=== PATIENT | male | born 2000 | race Caucasian/White ===

== ENCOUNTER 2019-01-29 10:19 | Emergency (ER) | payer SELFPAY ==
[~2019-01-29] VITALS: Ht 165.1 cm; Wt 93.4 kg
[2019-01-29 10:58] VITALS: BP 136/73; PULSE 95; RESP 20; Ht 165.1 cm; Wt 93.4 kg
== END 2019-01-29 11:42 | disposition left against medical advice (07) ==
LOC: FTE 10:19
DX: Z53.21 Procedure and treatment not carried out due to patient leaving prior to being seen by health care provider (principal)

== ENCOUNTER 2019-01-29 22:11 | Emergency (ER) | payer SELFPAY | END 2019-01-29 22:53 | disposition left against medical advice (07) | LOC: E/R 22:11 | DX: Z53.21 Procedure and treatment not carried out due to patient leaving prior to being seen by health care provider (principal) ==

== ENCOUNTER 2019-02-02 08:02 | Emergency (ER) | payer OTHER ==
[~2019-02-02] VITALS: Ht 165.1 cm; Wt 90.2 kg
[2019-02-02 08:05] VITALS: BP 143/74; PULSE 84; RESP 18; Ht 165.1 cm; Wt 90.2 kg
[2019-02-02] MEDS ORDERED: ONDANSETRON (ODT) 4 MG TAB ODT STA (08:26)
[2019-02-02] MEDS ORDERED: HYDR-4011 PO (08:28)
[2019-02-02] MEDS ORDERED: CYCL10TA7 PO (08:28)
[2019-02-02] MEDS ORDERED: NAPR-985 PO (08:28)
[2019-02-02] MEDS ORDERED: HYDROCODONE/APAP (5/325) TAB PO ONE (08:30)
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
== END 2019-02-02 08:57 | disposition home or self-care (01) ==
LOC: FTE 08:02
DX: M54.9 Dorsalgia, unspecified (principal); R51 Headache
CPT/HCPCS: Z7502; Z7610; 99283

== ENCOUNTER 2019-03-22 07:31 | Emergency (ER) | payer OTHER ==
[~2019-03-22] VITALS: Ht 152.4 cm; Wt 79.0 kg
[~2019-03-22 07:31] MED LIST: CYCL10TA7 PO; HYDR-4011 PO; NAPR-985 PO
[2019-03-22 07:36] VITALS: BP 123/71; PULSE 78; RESP 18; Ht 152.4 cm; Wt 79.0 kg
[2019-03-22] MEDS ORDERED: NAPR-985 PO (07:55)
--- NOTE | 2019-03-22 08:02 | ERD ---
ER Documentation Chief Complaint Chief Complaint BACK PAIN X 3 WEEKS HPI This is a 18-year-old male patient who presents the emergency room complaint of mid to low back pain x1 week after lifting box. Denies any paresthesia, no difficulty ambulation or getting on and off gurney. Patient well-appearing, no chronic medical problems. Has not tried heat, stretching, NSAIDs. ROS All systems reviewed and are negative except as per history of present illness. Medications Home Meds Active Scripts Naproxen* (Naprosyn*) 500 Mg Tablet, 500 MG PO BID for 14 Days, #28 TAB Prov:SABINA NUNEZ NP 03/22/19 Cyclobenzaprine Hcl* (Cyclobenzaprine Hcl*) 10 Mg Tablet, 10 MG PO TID, #15 TAB Prov:JANELL CANTRELL PA-C 02/02/19 Naproxen* (Naprosyn*) 500 Mg Tablet, 500 MG PO BID PRN for PAIN AND/OR INFLAMMATION, #30 TAB Prov:JANELL CANTRELL PA-C 02/02/19 Hydrocodone/Acetaminophen ([place] 5-325 Tablet) 1 Each Tablet, 1 TAB PO Q6H PRN for PAIN, #7 TAB Prov:JANELL CANTRELL PA-C 02/02/19 Allergies Allergies: Coded Allergies: No Known Drug Allergies (Verified Allergy, Mild, 07/28/16) PMhx/Soc History of Surgery: Yes (TOF SURGERY X 2 SURGERIES ,L LUNG TRANSPLANT) Hx Neurological Disorder: No Hx Respiratory Disorders: Yes (L LUNG TRANSPLANT ) Hx Cardiac Disorders: Yes (TOF 1 SURGERY WHEN BABY AND LAST ONE 2 YRS AGO) Hx Miscellaneous Medical Probl: No Hx Alcohol Use: No Hx Substance Use: No Hx Tobacco Use: No Smoking Status: Never smoker FmHx Family History: No diabetes, No coronary disease, No other Physical Exam Vitals Vital Signs Date Temp Pulse Resp B/P (MAP) Pulse Ox O2 O2 Flow FiO2 Time Delivery Rate 03/22/19 98.1 78 18 123/71 99 07:36 (88) Physical Exam Const: No acute distress Head: Atraumatic Eyes: Normal Conjunctiva ENT: Normal External Ears, Nose and Mouth. Neck: Full range of motion. No meningismus. Resp: Clear to auscultation bilaterally Cardio: Regular rate and rhythm, no murmurs Abd: Soft, non tender, non distended. Normal bowel sounds Skin: No petechiae or rashes Back: No midline or flank tenderness, no bruising, no ltd rom Ext: No cyanosis, or edema Neur: Awake and alert, steady gait, normal toe-heel test Psych: Normal Mood and Affect Back Exam: Skin: No bruising or rash Compartments: Soft Motor: Normal flexion and extension of bilateral hip/knee/ankle/foot Sensation: Intact to light touch throughout Bones: No midline TTP Procedures/MDM This is a 18-year-old male patient presents emergency room with back pain. Patient is able to ambulate to treatment area without assistance. Patient is seated on the stretcher without obvious distress. There is no surface trauma. No muscle tenderness to palpation, no spasms, no step-off or deformity, no CVA tenderness to percussion, patient is able to stand erect. Normal flexion and extension with lateral bending and rotation without limitation. Heel and toe walk with good strength Straight leg raise negative for radiculopathy sensation to light touch is intact. Due to patient's presentation today there is low suspicion for malignancy, infection, epidural abscess, cauda equina syndrome, herniation, AAA. Patient's musculoskeletal symptoms have stabilized while they have been evaluated in the department and are appropriate for outpatient work up. Patient is being discharged home with instructions to follow-up with primary care provider. Patient is also provided prescription for NSAID with instructions for use of heat, ice, stretching. Red flags discussed, patient verbalized understanding of signs and symptoms to return to emergency room. Departure Diagnosis: Primary Impression: Back pain Condition: Stable Patient Instructions: Back Pain (Acute Or Chronic) Referrals: [facility] YOU HAVE RECEIVED A MEDICAL SCREENING EXAM AND THE RESULTS INDICATE THAT YOU DO NOT HAVE A CONDITION THAT REQUIRES URGENT TREATMENT IN THE EMERGENCY DEPARTMENT. FURTHER EVALUATION AND TREATMENT OF YOUR CONDITION CAN WAIT UNTIL YOU ARE SEEN IN YOUR DOCTORS OFFICE WITHIN THE NEXT 1-2 DAYS. IT IS YOUR RESPONSIBILITY TO MAKE AN APPOINTMENT FOR FOLOW-UP CARE. IF YOU HAVE A PRIMARY DOCTOR --you should call your primary doctor and schedule an appointment IF YOU DO NOT HAVE A PRIMARY DOCTOR YOU CAN CALL OUR PHYSICIAN REFERRAL HOTLINE AT IF YOU CAN NOT AFFORD TO SEE A PHYSICIAN YOU CAN CHOSE FROM THE FOLLOWING [facility] [address] [place] [address] [facility] [facility] [address] [facility] [address] [facility] [address] [facility]. [facility] [address] Additional Instructions: Thank you very much for allowing us to participate in your care. Your health and safety is our top priority at [facility]. Call your primary care doctor TOMORROW for an appointment during the next 2-4 days and bring all the information and medications prescribed. Have prescriptions filled and follow precisely the directions on the label. If the symptoms get worse and your provider is unavailable, return to the Emergency Department immediately. USE HEAT 20-30 MIN SEVERAL TIMES PER DAY USE NAPROSYN PERFORM STRETCHING EXERCISES DAILY FOLLOW-UP WITH YOUR DOCTOR SABINA NUNEZ NP March 22, 2019 08:02
== END 2019-03-22 08:30 | disposition home or self-care (01) ==
LOC: FTE 07:31
DX: M54.5 Low back pain (principal)
CPT/HCPCS: 99282